=== PATIENT | male | born 1980 | race Caucasian/White ===

== ENCOUNTER 2016-10-08 15:22 | Emergency (ER) | payer OTHER ==
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
--- NOTE | 2016-10-08 16:33 | ED ORDER SUMMARY ---
..... Patient: OFE MEDELLIN OrderSheet [facility] VisitID: [id number] [address] [place] [address] 36y, M Registration Date/Time: 10/08/2016 ORDER SHEET Weight: 77.1 kg (stated) Allergies: No Known Drug Allergy GENERAL ORDERS: Hand 3 or 4V Right Urgent (15:54 10/08/2016 EKlyleleva P.A.-C) (15:59 LMuller) MEDICATION ORDERS: Tdap IM 0.5 mL (NOW, per protocol) (15:41 10/08/2016 JBoardley R.N. per protocol) (15:42 JBoardley R.N.) Keflex PO 500 mg (NOW) (16:34 10/08/2016 Thuy P.A.-C) (Ack 16:42 JBoardley R.N.) (16:45 JBoardley R.N.) IV FLUIDS: ORDER SHEET NOTES: [Electronically signed by Tyron Landry R.N. (17:02 10/08/2016)] [Electronically signed by My Martinez P.ATrae-C (17:47 10/08/2016)] [Electronically locked/signed by Tyron Landry R.N. (17:02 10/08/2016)]
--- NOTE | 2016-10-08 16:33 | ED ORDER SUMMARY ---
..... Patient: OFE MEDELLIN OrderSheet [facility] VisitID: [id number] [address] [place] [address] 36y, M Registration Date/Time: 10/08/2016 ORDER SHEET Weight: 77.1 kg (stated) Allergies: No Known Drug Allergy GENERAL ORDERS: Hand 3 or 4V Right Urgent (15:54 10/08/2016 EKlyleleva P.A.-C) (15:59 LMuller) MEDICATION ORDERS: Tdap IM 0.5 mL (NOW, per protocol) (15:41 10/08/2016 JBoardley R.N. per protocol) (15:42 JBoardley R.N.) Keflex PO 500 mg (NOW) (16:34 10/08/2016 Thuy P.A.-C) (Ack 16:42 JBoardley R.N.) (16:45 JBoardley R.N.) IV FLUIDS: ORDER SHEET NOTES: [Electronically signed by Tyron Landry R.N. (17:02 10/08/2016)] [Electronically signed by My Martinez P.ATrae-C (17:47 10/08/2016)] [Electronically locked/signed by Tyron Landry R.N. (17:02 10/08/2016)]
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
--- NOTE | 2016-10-08 17:47 | ED MED RECONCILIATION SUMMARY ---
Patient: FOE MEDELLIN Medication Reconciliation Report [facility] VisitID: [id number] [address] [place] [address] 36y, M Registration Date/Time: 10/08/2016 Weight: 77.1 kg Height/Length: 72 in. BMI: 23.1 ALLERGIES: No Known Drug Allergy The patient's Home Medications are listed below: NONE. The source(s) of the original Home Medication information: patient The following Medications were given to the patient in the Emergency Department: TDAP [IM] IM 0.5 mL, administered: 10/08/2016 3:37:00 PM Keflex [PO] PO 500 mg, administered: 10/08/2016 4:45:00 PM The following Medications were prescribed to the patient: Cephalexin 500 mg: take 1 capsule orally every 8 hours for 10 days. No refill. -- My Martinez, P.A.-C Ibuprofen 800 mg tablets: take 1 tablet orally every 8 hours for 5 days, as needed for pain. Dispense fifteen (15). No refill. -- My Martinez, P.A.-C Tylenol ER 650 mg (available over the counter): take 1 orally every 6 hours for 5 days, as needed for pain. Dispense fifteen (15). No refill. Substitution is permissible. -- My Martinez, P.A.-C
--- NOTE | 2016-10-08 17:47 | ED MAR SUMMARY ---
..... Medication Administration Record [facility] [address] [place] [address] Patient: OFE MEDELLIN Visit ID: [id number] 36y, M Weight: 77.1 kg Height/Length: 72 in BMI: 23.1 ALLERGIES: No Known Drug Allergy Given 15:37 10/08/2016 Tyron Landry R.N. Medication Administered: TDAP [IM], Dose: 0.5 mL IM. Medication Ordered: Tdap IM 0.5 mL (NOW, per protocol). Given 16:45 10/08/2016 Tyron Landry R.NTrae Medication Administered: KEFLEX [PO] (CEPHALEXIN), Dose: 500 mg PO. Medication Ordered: Keflex PO 500 mg (NOW).
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
--- NOTE | 2016-10-08 17:47 | ED MED RECONCILIATION SUMMARY ---
Patient: OFE MEDELLIN Medication Reconciliation Report [facility] VisitID: [id number] [address] [place] [address] 36y, M Registration Date/Time: 10/08/2016 Weight: 77.1 kg Height/Length: 72 in. BMI: 23.1 ALLERGIES: No Known Drug Allergy The patient's Home Medications are listed below: NONE. The source(s) of the original Home Medication information: patient The following Medications were given to the patient in the Emergency Department: TDAP [IM] IM 0.5 mL, administered: 10/08/2016 3:37:00 PM Keflex [PO] PO 500 mg, administered: 10/08/2016 4:45:00 PM The following Medications were prescribed to the patient: Cephalexin 500 mg: take 1 capsule orally every 8 hours for 10 days. No refill. -- My Martinez, P.A.-C Ibuprofen 800 mg tablets: take 1 tablet orally every 8 hours for 5 days, as needed for pain. Dispense fifteen (15). No refill. -- My Martinez, P.A.-C Tylenol ER 650 mg (available over the counter): take 1 orally every 6 hours for 5 days, as needed for pain. Dispense fifteen (15). No refill. Substitution is permissible. -- My Martinez, P.A.-C
--- NOTE | 2016-10-08 17:47 | ED MAR SUMMARY ---
..... Medication Administration Record [facility] [address] [place] [address] Patient: OFE MEDELLIN Visit ID: [id number] 36y, M Weight: 77.1 kg Height/Length: 72 in BMI: 23.1 ALLERGIES: No Known Drug Allergy Given 15:37 10/08/2016 Tyron Landry R.N. Medication Administered: TDAP [IM], Dose: 0.5 mL IM. Medication Ordered: Tdap IM 0.5 mL (NOW, per protocol). Given 16:45 10/08/2016 Tyron Landry R.NTrae Medication Administered: KEFLEX [PO] (CEPHALEXIN), Dose: 500 mg PO. Medication Ordered: Keflex PO 500 mg (NOW).
== END 2016-10-08 16:47 | disposition home or self-care (01) ==
LOC: ED SRH 15:22
DX: L03.211 Cellulitis of face (principal); L03.011 Cellulitis of right finger; S60.511A Abrasion of right hand, initial encounter; S40.211A Abrasion of right shoulder, initial encounter; S60.811A Abrasion of right wrist, initial encounter; V28.0XXA Motorcycle driver injured in noncollision transport accident in nontraffic accident, initial encounter; Y93.I9 Activity, other involving external motion; Z23 Encounter for immunization